=== PATIENT | male | born 1975 | race Caucasian/White ===

== ENCOUNTER 2018-08-07 16:06 | Emergency (ER) | END 2018-08-07 18:29 | disposition home or self-care (01) ==

== ENCOUNTER 2018-08-09 05:44 | Emergency (ER) | END 2018-08-09 06:42 | disposition home or self-care (01) ==

== ENCOUNTER 2018-08-14 06:12 | Emergency (ER) | END 2018-08-14 07:22 | disposition home or self-care (01) ==